=== PATIENT | female | born 1965 | race Caucasian/White ===

== ENCOUNTER 2021-02-01 00:23 | Day surgery (SDC) | payer BC, SELFPAY ==
[2021-01-22 13:40] VITALS: BMI 25.8
[2021-02-01 09:41] VITALS: BP 125/84; PULSE 87; RESP 20; TEMP 35.9; O2SAT 98; BMI 24.0
[2021-02-01] MEDS: LACTATED RINGERS 1,000 ML 150 ML IV CONT (09:53)
--- NOTE | 2021-02-01 10:06 | WPDGICN ---
Assessment and Plan Assessment and plan (1) Encounter for screening colonoscopy: Code(s): Z12.11 - Encounter for screening for malignant neoplasm of colon Status: Acute Assessment and Plan: Patient presents for screening colonoscopy. Appears to be at average risk for colon polyps. (2) Diarrhea: Code(s): R19.7 - Diarrhea, unspecified Status: Acute Assessment and Plan: Patient notices recent complaints of diarrhea off and on over 6 months may be related to irritable bowel syndrome. Fiber supplementation is encouraged. GI Consult Note Consult date/time: 02/01/21 10:06 HPI: Lisa Yarbrough is a 55 year old female Presents for screening colonoscopy. Patient has current weight appetite is normal. She presents for screening colonoscopy. She has never had colonoscopy before. Patient's family history noncontributory. She does report diarrhea off and on over last 6 months. She states this may be related with anxiety. She has symptoms to depression which have recently been addressed with medications. She has recently started additional fiber in her diet with a diarrhea in this has helped to a certain degree. No bleeding has been reported. Review of Systems Review of Systems: All systems reviewed & are unremarkable except as noted in HPI and below PMFSH Past Medical History Medical History (Updated 02/01/21 @ 10:08 by Jose Davis MD) Anemia Ankle fracture, left in 1981 Anxiety Bipolar disorder BMI 25.0-25.9,adult Breast cancer screening Depression Diarrhea Distal radial fracture Elevated fasting glucose Elevated liver enzymes Encounter to establish care GERD (gastroesophageal reflux disease) Hematuria Hematuria, microscopic HLD (hyperlipidemia) Family History Family History Father Heart disease Hypertension Cerebrovascular accident Other Diabetes mellitus Family history of coronary artery disease Social History Social History Smoking status: Never smoker Second hand tobacco smoke exposure: No Alcohol intake: never Substance use: never Substance use type: does not use Living arrangements: with family Gender identity (if verbalized by the patient): Female Spiritual care concerns: No Meds Home Medications and Allergies Home Medications Medication Instructions Recorded Confirmed Type trazodone 100 mg PO HS 01/11/19 01/30/21 History lamotrigine 100 mg tablet 100 mg PO .AM tablet 07/31/20 01/30/21 History lamotrigine 200 mg tablet 200 mg PO .PM tablet 07/31/20 01/30/21 History aripiprazole 5 mg PO DAILY 01/22/21 01/30/21 History clonazepam 0.5 mg PO BID 01/22/21 01/30/21 History propranolol 10 mg PO BID 01/22/21 01/30/21 History calcipotriene-betamethasone 0.005 1 applic TOPICAL DAILY PRN #60 g 01/30/21 02/01/21 Rx %-0.064 % topical ointment Allergies Allergy/AdvReac Type Severity Reaction Status Date / Time No Known Allergies Allergy Mild Verified 02/01/21 09:39 Vital Signs Vital Signs - 24 hr 02/01/21 09:41 Temperature 96.7 F L Pulse Rate 87 Respiratory Rate 20 Blood Pressure 125/84 Pulse Oximetry 98 Exam Narrative: Physical exam reveals patient to be alert. Vital signs stable. HEENT exam is unremarkable. Patient is anicteric. Lungs are clear to auscultation and percussion. Heart is without murmur or extra sounds. Abdominal exam bowel sounds are present soft nontender with no organomegaly. Digital external rectal exam is normal.
--- NOTE | 2021-02-01 10:27 | WPDANESEPPF ---
Anes - Initial Pre Proc Eval Procedure: Operation Date: 02/01/21 11:00 Proposed Procedures p Screening Colonoscopy - Jose Davis MD Date/Time: 02/01/21 10:27 Surgeon: Jose Davis MD Pre Op Diagnosis: neoplasm screening Patient Data Age: 55 Gender: F Height: 1.73 m Weight: 71.6 kg Last Vital Signs Temp 35.9 C L 02/01/21 09:41 Pulse 87 02/01/21 09:41 Resp 20 02/01/21 09:41 BP 125/84 02/01/21 09:41 Pulse Ox 98 02/01/21 09:41 Allergies Allergy/AdvReac Type Severity Reaction Status Date / Time No Known Allergies Allergy Mild Verified 02/01/21 09:39 Home Medications Medication Instructions Recorded Confirmed Type trazodone 100 mg PO HS 01/11/19 01/30/21 History lamotrigine 100 mg tablet 100 mg PO .AM tablet 07/31/20 01/30/21 History lamotrigine 200 mg tablet 200 mg PO .PM tablet 07/31/20 01/30/21 History aripiprazole 5 mg PO DAILY 01/22/21 01/30/21 History clonazepam 0.5 mg PO BID 01/22/21 01/30/21 History propranolol 10 mg PO BID 01/22/21 01/30/21 History calcipotriene-betamethasone 0.005 1 applic TOPICAL DAILY PRN #60 g 01/30/21 02/01/21 Rx %-0.064 % topical ointment Patient hx anesthesia problems: post op nausea/vomiting Family hx anesthesia problems: none Results Review: All pre-operative results and documents have been reviewed as part of the pre-operative evaluation. [facility] Past Medical History Medical History Anemia Ankle fracture, left in 1981 Anxiety Bipolar disorder BMI 25.0-25.9,adult Breast cancer screening Depression Diarrhea Distal radial fracture Elevated fasting glucose Elevated liver enzymes Encounter to establish care GERD (gastroesophageal reflux disease) Hematuria Hematuria, microscopic HLD (hyperlipidemia) Family History Family History Father Heart disease Hypertension Cerebrovascular accident Other Diabetes mellitus Family history of coronary artery disease Social History Social History Smoking status: Never smoker Second hand tobacco smoke exposure: No Alcohol intake: never Substance use: never Substance use type: does not use Living arrangements: with family Gender identity (if verbalized by the patient): Female Spiritual care concerns: No Anes - Eval Final PreProcedure Day of Procedure 02/01/21 10:27 Patient weight: normal Heart: regular rate and rhythm Lungs: clear to auscultation Airway: Mallampati scale class III Neurological: alert and oriented Last oral intake: >/= 8 hours ASA classification: III Emergent: no Anesthetic plan: proceed Anesthesia type and monitoring: general GIVS and standard monitoring Results Review: All pre-operative results and documents have been reviewed as part of the pre-operative evaluation. Informed Consent: The patient's anesthetic plan and its attendant risks and benefits were discussed with the patient/family/POA. Questions were solicited and answers provided to the satisfaction of the patient/family/POA.
[2021-02-01] MEDS: SIMETHICONE ORAL SUSPENSION 20 MG/0.3 ML 30 ML BOTTLE 0.6 ML IRRIGATION (10:50)
[2021-02-01 11:02] VITALS: BP 83/47; PULSE 74; RESP 14; O2SAT 98
[2021-02-01 11:12] VITALS: BP 90/53; PULSE 69; RESP 21; O2SAT 100
[2021-02-01 11:22] VITALS: BP 106/71; PULSE 73; RESP 21; O2SAT 100
== END 2021-02-01 11:49 | disposition home or self-care (01) ==
PROVIDERS: PCP Nurse Practitioner Family; Visit Provider Internal Medicine Gastroenterology
PROC: 0DJD8ZZ Inspection of Lower Intestinal Tract, Via Natural or Artificial Opening Endoscopic (ICD-10-PCS; CPT 45378; principal; 2021-02-01 11:00)
DX: Z12.11 Encounter for screening for malignant neoplasm of colon (principal); R19.7 Diarrhea, unspecified; F41.9 Anxiety disorder, unspecified; F31.9 Bipolar disorder, unspecified; K21.9 Gastro-esophageal reflux disease without esophagitis; E78.5 Hyperlipidemia, unspecified
CPT/HCPCS: 45378; J2001; J2704; J7120

== ENCOUNTER → 2021-03-01 08:14 | Outpatient (CLI) | payer BC, SELFPAY ==
--- NOTE | ~2021-03-01 | US_ITS ---
EXAMINATION: US abdomen limited DATE: 03/01/2021 08:34 INDICATION: Abnormal level of serum enzymes TECHNIQUE: Multiple grayscale and Doppler ultrasound images of the abdomen were obtained. COMPARISON: None FINDINGS: Abdominal aorta is normal in caliber measuring 2.6 cm proximally, 2.0 cm in the mid aorta and 2.2 cm the distal aorta. Visualized proximal inferior vena cava is normal. The visualized pancreatic body is normal in appearance. The pancreatic head and tail are not clearly visualized. Liver has normal ech ogenicity and contour, with a smooth surface. No liver lesion identified. No intrahepatic biliary gege t dilation suspected. Portal venous flow was seen in the hepatopetal, normal direction and has normal Doppler waveform. A loop of bowel with some dirty shadowing gas is seen in the region of the gallbla dder fossa. The gallbladder is not identified. Sonographic Slaughter sign was reported as negative by [facility].The common bile duct is normal in diameter measuring 3 mm. The right kidney measures 8. 7 cm in length with normal contour and echogenicity and no hydronephrosis. IMPRESSION: 1. Gallbladder is not identified suggesting it is either decompressed and unable be distinguished fro m the adjacent bowel or surgically absent. Correlate with surgical history and if clinically indicate d CT or MRI could be obtained for more definitive determination. Otherwise unremarkable right upper q uadrant ultrasound. Reviewed, dictated and finalized at location B. DIALYSIS CHARGE NURSE IMPRESSION: 1. Gallbladder is not identified suggesting it is either decompressed and unabl e be distinguished from the adjacent bowel or surgically absent. Correlate with surgical history and if clinically indicated CT or MRI could be obtained for m ore definitive determination. Otherwise unremarkable right upper quadrant ultra sound.
== END ==
PROVIDERS: PCP Nurse Practitioner Family; Visit Provider Nurse Practitioner Family
DX: R74.8 Abnormal levels of other serum enzymes (principal)
CPT/HCPCS: 76705

== ENCOUNTER → 2021-08-01 10:41 | Outpatient (CLI) | payer BC, SELFPAY ==
--- NOTE | ~2021-08-01 | MM_ITS ---
EXAMINATION: MM screening fernanda BI w toño HISTORY: Screening mammogram, family history of breast cancer in her sister. TECHNIQUE: Craniocaudal and mediolateral oblique 3-D tomosynthesis images were obtained and synthetic 2-D images were generated. CAD analysis was submitted and interpreted. COMPARISON: 06/04/2018, 05/14/2016, 05/11/2015 BREAST PARENCHYMAL COMPOSITION: There are scattered areas of fibroglandular density. FINDINGS: There is no suspicious mass, calcification, or architectural distortion to suggest malignan cy in either breast. There has been no suspicious interval change. IMPRESSION: 1. No mammographic evidence of malignancy. 2. Recommend routine screening mammography in one year. BI-RADS Category 1: Negative Reviewed, dictated and finalized at location A.
== END ==
PROVIDERS: PCP Nurse Practitioner Family; Visit Provider Nurse Practitioner Family
DX: Z12.31 Encounter for screening mammogram for malignant neoplasm of breast (principal)
CPT/HCPCS: 77063; 77067

== ENCOUNTER 2023-10-15 11:12 | Outpatient (CLI) | payer BC, SELFPAY ==
--- NOTE | ~2023-10-15 | MM_ITS ---
EXAMINATION: MM screening fernanda BI w toño HISTORY: Screening TECHNIQUE: Craniocaudal and mediolateral oblique 3-D tomosynthesis images were obtained and synthetic 2-D images were generated. CAD analysis was submitted and interpreted. COMPARISON: Comparison to multiple prior studies sequentially, with oldest reviewed study dated 04/2014. BREAST PARENCHYMAL COMPOSITION: Dense: The breasts are heterogeneously dense, which may obscure small masses FINDINGS: There is no evidence of suspicious mass, calcification, or architectural distortion to sugg est malignancy in either breast. There has been no suspicious interval change. IMPRESSION: 1. No mammographic evidence of malignancy. 2. Recommend routine screening mammography in one year. BI-RADS Category 1: Negative Reviewed, dictated and finalized at location B.
== END 2023-10-15 11:13 ==
LOC: MICIMG 11:12
PROVIDERS: PCP Nurse Practitioner Family; Visit Provider Nurse Practitioner Family
DX: Z12.31 Encounter for screening mammogram for malignant neoplasm of breast (principal)
CPT/HCPCS: 77063; 77067

== ENCOUNTER 2024-09-17 08:02 | Outpatient (CLI) | payer BC, SELFPAY ==
--- NOTE | ~2024-09-17 | US_ITS ---
US right upper quadrant INDICATION: Abnormal liver enzyme levels. History of cholecystectomy. PROCEDURE: Realtime right upper abdominal ultrasound. COMPARISON: Ultrasound dated 03/01/2021 FINDINGS: The pancreas is normal without focal mass or pancreatic ductal dilation. Liver echotexture is normal without focal mass or intrahepatic biliary dilatation. There is normal directional flow i n the portal vein. Gallbladder surgically absent. Common bile duct measures 4 mm. No sonographic Slaughter's sign. IMPRESSION: 1: Unremarkable limited abdominal ultrasound. Reviewed, dictated and finalized at location B.
== END 2024-09-17 08:03 | disposition home or self-care (01) ==
LOC: MICIMG 08:03
PROVIDERS: PCP Nurse Practitioner Family; Visit Provider Nurse Practitioner Family
DX: R74.8 Abnormal levels of other serum enzymes (principal)
CPT/HCPCS: 76705